=== PATIENT | male | born 1950 | race Caucasian/White ===

== ENCOUNTER → 2020-02-26 | Outpatient (CLI) | payer MEDICARE | END | disposition home or self-care (01) | LOC: COVID19 08:58 | PROVIDERS: ATTEND Family Medicine | DX: Z20.828 Contact with and (suspected) exposure to other viral communicable diseases (principal) ==

== ENCOUNTER 2021-09-15 22:28 | Emergency (ER) | payer MEDICARE ==
[~2021-09-15] VITALS: Ht 177.8 cm; Wt 106.6 kg
== END 2021-09-15 23:16 | disposition home or self-care (01) ==
LOC: ED 22:28
DX: R10.9 Unspecified abdominal pain (principal); R11.0 Nausea; R53.1 Weakness